=== PATIENT | female | born 1950 | race Caucasian/White ===

== ENCOUNTER → 2018-04-03 | Outpatient (CLI) | payer MEDICARE ==
[~2018-04-03] MED LIST: [UNRECOGNIZED DRUG - OTHER]
[2018-04-03 16:30] LABS: BASOPHILS # (AUTO) 0.03 x10^3/uL (0-0.1); BASOPHILS % (AUTO) 0 % (0-1); EOSINOPHILS # (AUTO) 0.42 x10^3/uL (0-0.4); EOSINOPHILS % (AUTO) 5 % (1-7); LYMPHOCYTES # (AUTO) 2.74 x10^3/uL (1-3.4); LYMPHOCYTES % (AUTO) 34 % (22-44); MD NO; MEAN CORPUSCULAR HEMOGLOBIN 30.4 pg (27.0-34.8); MEAN CORPUSCULAR HGB CONC 33.9 g/dL (32.4-35.8); MEAN CORPUSCULAR VOLUME 89.6 fL (80-100); MEAN PLATELET VOLUME 7.9 fL (7.4-10.4); MONOCYTES # (AUTO) 0.56 x10^3/uL (0.2-0.8); MONOCYTES % (AUTO) 7 % (2-9); NEUTROPHILS # (AUTO) 4.21 x10^3/uL (1.8-6.8); NEUTROPHILS % (AUTO) 53 % (42-75); PLATELET COUNT 284 x10^3/uL (130-400); RED BLOOD COUNT 4.92 x10^6/uL (3.82-5.3); RED CELL DISTRIBUTION WIDTH 13.4 % (9.6-15.2)
[2018-04-03 16:33] LABS: INTERNATIONAL NORMALIZED RATIO 0.99 (0.93-1.1); PROTHROMBIN TIME 10.2 Seconds (9.6-11.5)
[2018-04-03 16:36] LABS: ALANINE AMINOTRANSFERASE 25 U/L (12-78); ALBUMIN 3.9 g/dL (3.4-5.0); ANION GAP 3 mmol/L (5-15); CALCIUM 8.7 mg/dL (8.5-10.1); CHLORIDE 96 mmol/L (98-107); CREATININE 1.16 mg/dL (0.55-1.02)
[2018-04-03 16:38] LABS: ALKALINE PHOSPHATASE 163 U/L (45-117); BILIRUBIN,TOTAL 0.3 mg/dL (0.2-1.0); TOTAL PROTEIN 7.9 g/dL (6.4-8.2)
== END | disposition home or self-care (01) ==
LOC: STAR 15:29
PROVIDERS: ATTEND Specialist
DX: Z01.818 Encounter for other preprocedural examination (principal); I44.0 Atrioventricular block, first degree; R19.07 Generalized intra-abdominal and pelvic swelling, mass and lump
CPT/HCPCS: 36415; 71046; 80053; 85025; 85610; 85730; 86304; 93005

== ENCOUNTER 2018-04-08 07:12 | Inpatient (IN) | payer MEDICARE ==
[~2018-04-08] VITALS: Ht 160 cm; Wt 89.0 kg
[2018-04-08] MEDS ORDERED: LACTATED RINGERS 1,000 ML IV SCH (07:41)
[2018-04-08 07:54] VITALS: BP 146/89
[2018-04-08] MEDS ORDERED: SCOPOLAMINE PATCH, 1.5MG PATCH.TD72 TD ONE (08:00)
[2018-04-08] MEDS ORDERED: LIDOCAINE-MPF 1%, 2ML INFIL ONE (08:00)
[2018-04-08] MEDS ORDERED: OxyconTIN ER 10 MG TAB.ER PO ONE (08:00)
[2018-04-08] MEDS ORDERED: GABAPENTIN 300 MG CAPSULE PO ONE (08:00)
[2018-04-08] MEDS ORDERED: ACETAMINOPHEN 500 MG TABLET PO ONE (08:00)
[2018-04-08] MEDS ORDERED: MAGN300C PO (08:05)
[2018-04-08] MEDS ORDERED: METOPROLOL ER PO (08:05)
[2018-04-08] MEDS ORDERED: LOSA100T6 PO (08:05)
[2018-04-08] MEDS ORDERED: NORT50CA PO (08:05)
[2018-04-08] MEDS ORDERED: LEVO175T5 PO (08:05)
[2018-04-08] MEDS ORDERED: OXYC10TA6 PO (08:05)
[2018-04-08] MEDS ORDERED: POLY17PO5 PO (08:05)
[2018-04-08] MEDS ORDERED: MORP-52 PO (08:05)
[2018-04-08] MEDS ORDERED: ATOR20TA9 PO (08:05)
[2018-04-08] MEDS ORDERED: RANI150C PO (08:05)
[2018-04-08] MEDS ORDERED: AMLO5TAB2 PO (08:05)
[2018-04-08] MEDS ORDERED: SPIR25TA3 PO (08:05)
[2018-04-08] MEDS ORDERED: GABA300C10 PO (08:05)
[2018-04-08] MEDS ORDERED: CARI350T14 PO (08:09)
[2018-04-08] MEDS ORDERED: PROCHLORPER PO (08:09)
[2018-04-08] MEDS ORDERED: ASPI1TAB31 PO (08:09)
[2018-04-08] MEDS ORDERED: FENTANYL PF 250 MCG/5ML ONE (09:56)
[2018-04-08] MEDS ORDERED: MIDAZOLAM 1 MG/ML, 2ML ONE (09:56)
[2018-04-08] MEDS ORDERED: LIDOCAINE-MPF 2% ,5ML ONE (09:57)
[2018-04-08] MEDS ORDERED: PROPOFOL 10 MG/ML, 20ML ONE (09:57)
[2018-04-08] MEDS ORDERED: ROCURONIUM 10MG/ML,5ML ONE ×2 (09:58→12:16)
[2018-04-08] MEDS ORDERED: PHENYLEPHRINE 10 MG/ML ONE (09:59)
[2018-04-08] MEDS ORDERED: CEFOTETAN PMX 2GM/50ML 50 ML ONE (10:00)
[2018-04-08] MEDS ORDERED: EPINEPHRINE 1 MG/ML, 1ML ONE (10:59)
[2018-04-08] MEDS ORDERED: BUPIVACAINE 0.25% ONE (10:59)
[2018-04-08] MEDS ORDERED: OxyconTIN ER 20 MG TAB.ER ONE ×2 (11:00)
[2018-04-08] MEDS ORDERED: DEXMEDETOMIDINE 200 MCG/2 ML ONE (11:12)
[2018-04-08] MEDS ORDERED: CEFAZOLIN 1,000 MG ONE (11:19)
[2018-04-08] MEDS ORDERED: DEXAMETHASONE 4 MG/ML, 1ML ONE ×2 (11:35)
[2018-04-08] MEDS ORDERED: hydrALAzine 20 MG/ML, 1ML IV PRN (12:30)
[2018-04-08] MEDS ORDERED: OXYcodone 5 MG/5 ML ORAL.SOL UDC PO PRN (12:30)
[2018-04-08] MEDS ORDERED: MEPERIDINE/PF 25MG/0.5ML IVPush PRN (12:30)
[2018-04-08] MEDS ORDERED: HALOPERIDOL 5 MG/ML IV PRN (12:30)
[2018-04-08] MEDS ORDERED: HYDROmorphone 1 MG/ML, 1ML IV PRN (12:30)
[2018-04-08] MEDS ORDERED: PROMETHAZINE 25 MG/ML, 1ML IV PRN (12:30)
[2018-04-08] MEDS ORDERED: LABETALOL 5MG/ML, 20ML IV PRN (12:30)
[2018-04-08] MEDS ORDERED: LORazepam 2 MG/ML, 1ML IVPush PRN (12:30)
[2018-04-08] MEDS ORDERED: FENTANYL PF 100 MCG/2ML IV PRN (12:30)
== END 2018-04-08 16:20 | disposition home or self-care (01) | DRG 742 ==
LOC: ORIP 07:12
PROVIDERS: ADMIT Specialist; ATTEND Specialist
PROC: 0UT04ZZ Resection of Right Ovary, Percutaneous Endoscopic Approach (ICD-10-PCS; principal; 2018-04-08 11:00)
DX: N83.9 Noninflammatory disorder of ovary, fallopian tube and broad ligament, unspecified (principal); E87.1 Hypo-osmolality and hyponatremia; R19.07 Generalized intra-abdominal and pelvic swelling, mass and lump; K66.0 Peritoneal adhesions (postprocedural) (postinfection)
CPT/HCPCS: 36415; 86850; 86900; 86923; 88305; J0171; J0690; J1100; J2250; J2704; J3010; J3490; J2370; J7120; S0074

== ENCOUNTER 2021-02-03 07:59 | Day surgery (SDC) | payer MEDICARE ==
[~2021-02-03] VITALS: Ht 160 cm; Wt 92.0 kg
[~2021-02-03 07:59] MED LIST changes: +AMLO-150 PO; +ASPI1TAB31 PO; +ATOR20TA37 PO; +CARI-389 PO; +GABA300C10 PO; +LEVO175T5 PO; +LOSA100T14 PO; +MAGN300C PO; +METOPROLOL ER PO; +MORP-52 PO; +NORT50CA52 PO; +OXYC10TA6 PO; +POLY17PO5 PO; +PROCHLORPER PO; +RANI150C PO; +SPIR25TA5 PO
[2021-02-03] MEDS ORDERED: DIPHENHYDRAMINE 50 MG/ML, 1ML IVPush ONE (08:30)
[2021-02-03] MEDS ORDERED: SODIUM CHLORIDE 0.9% 1,000 ML IV SCH ×2 (08:30→12:00)
[2021-02-03] MEDS ORDERED: CHOL10003 PO (08:44)
[2021-02-03] MEDS ORDERED: oxygen INH (08:44)
[2021-02-03] MEDS ORDERED: MONT10TA17 PO (08:44)
[2021-02-03] MEDS ORDERED: FLUT1BLS INH (08:44)
[2021-02-03] MEDS ORDERED: DIPHENHYDRAMINE 50 MG/ML, 1ML ONE (08:59)
[2021-02-03 09:03] LABS: BASOPHILS % (AUTO) 1 % (0-1); EOSINOPHILS % (AUTO) 2 % (1-7); LYMPHOCYTES % (AUTO) 18 % (22-44); MEAN CORPUSCULAR HEMOGLOBIN 30.8 pg (27.0-34.8); MEAN CORPUSCULAR HGB CONC 34.1 g/dL (32.4-35.8); MEAN PLATELET VOLUME 7.5 fL (7.4-10.4); MONOCYTES % (AUTO) 8 % (2-9); NEUTROPHILS % (AUTO) 71 % (42-75); PLATELET COUNT 255 x10^3/uL (130-400); RED BLOOD COUNT 4.22 x10^6/uL (3.82-5.3); RED CELL DISTRIBUTION WIDTH 12.4 % (9.6-15.2)
[2021-02-03 09:04] LABS: MD NO
[2021-02-03 09:13] LABS: INTERNATIONAL NORMALIZED RATIO 0.97 (0.93-1.1); PROTHROMBIN TIME 10.4 Seconds (9.6-11.5)
[2021-02-03 09:14] LABS: ANION GAP 6 mmol/L (5-15); CALCIUM 9.6 mg/dL (8.5-10.1); CHLORIDE 95 mmol/L (98-107)
[2021-02-03] MEDS ORDERED: VERAPAMIL 2.5 MG/ML, 2ML ONE (09:50)
[2021-02-03] MEDS ORDERED: FENTANYL PF 100 MCG/2ML ONE (09:50)
[2021-02-03] MEDS ORDERED: NITROGLYCERIN 5 MG/ML, 10ML ONE (09:50)
[2021-02-03] MEDS ORDERED: MIDAZOLAM 1 MG/ML, 5ML ONE (09:50)
[2021-02-03] MEDS ORDERED: LIDOCAINE 2%, 20ML ONE (09:50)
[2021-02-03] MEDS ORDERED: HEPARIN 1,000 UNITS/ML, 10ML ONE (09:51)
== END 2021-02-03 12:57 | disposition home or self-care (01) ==
LOC: CACL 07:59
PROVIDERS: ATTEND Internal Medicine Cardiovascular Disease
DX: R09.02 Hypoxemia (principal); I10 Essential (primary) hypertension; G47.33 Obstructive sleep apnea (adult) (pediatric); E66.3 Overweight; Z68.38 Body mass index [BMI] 38.0-38.9, adult; Z79.01 Long term (current) use of anticoagulants; Z79.890 Hormone replacement therapy; Z79.899 Other long term (current) drug therapy; Z99.81 Dependence on supplemental oxygen
CPT/HCPCS: 36415; 80048; 82330; 82803; 82947; 83880; 84132; 84295; 85014; 85025; 85610; 85730; 93460; 99156; 99157; C1769; C1894; J1200; J1644; J2250; J3010; Q9967